=== PATIENT | female | born 1955 | race Caucasian/White ===

== ENCOUNTER 2016-12-08 10:21 | Inpatient (IN) | payer MEDICARE ==
--- NOTE | ~2016-12-08 | CO ---
Unit #: [id number] #: [id number] Patient: LINH ANDINO [id number] [facility]. [place], [place] [address] [id number] MR#: [id number] NAME: LINH ANDINO. ROOM: 231 Age: 61 Sex: F Admission Date: 12/09/2016 : 1955 Attending Physician: Manpreet Moore M.D. Primary Care Physician: Melchor Serna Aprn Consultation Date: 12/08/2016 CONSULTATION REPORT REASON FOR EVAL Splenic infarcts, please evaluate. HISTORY OF PRESENT ILLNESS This 61-year-old lady who came in with left upper quadrant pain was scanned and it shows possible wqzoy-on-nyfyuiy infarcts in the spleen with no actual evidence of clotting currently, has a past history of pulmonary embolism that was diagnosed in this hospital with a CT angio in 2013. She subsequently took six months of Xarelto and was told that everything is clear so she stopped taking the Xarelto and has had no other clots ever since. She has a history of hepatitis C, status post Harvoni therapy and we do not known the status of the counts, otherwise past history of hypertension, hypothyroidism, no cancers diagnosed in the past. CHRONIC MEDICATIONS OxyContin, Synthroid, gabapentin, Imuran and doxycycline. ALLERGIES Sulfa and Plavix which gave her hives in the past. FAMILY HISTORY Family history is negative for blood clots. She states that one parent had carotid clots and one parent may have had congestive failure and possible clots but no clearcut history of clotting. SOCIAL HISTORY She smokes heavy, unfiltered cigarettes according to the , over a pack a day for decades and no alcohol usage. REVIEW OF SYSTEMS Mainly remarkable for left upper quadrant discomfort periodically; no active pain but she is already seeing pain doctor and already on narcotics. Otherwise 10 systems were within normal limits. PHYSICAL EXAMINATION GENERAL APPEARANCE: On exam she has a dusky appearance. No palpable nodes. LUNGS: Clear. CARDIOVASCULAR: Distant S1 and S2. ABDOMEN: Spleen is not palpable. There is tenderness left upper quadrant and liver is not palpable. Bowel sounds are present. 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 GENITOURINARY: Pelvic exam was not performed. Unit #: [id number] #: [id number] Patient: LINH ANDINO DIAGNOSTIC STUDIES LABORATORY: So at this point we checked her blood work, hemoglobin 15.4, hematocrit 47, white count 17.6, platelets 433,000 and sodium 138, potassium 4.2, chloride 104, CO2 24, glucose 104, BUN 7, creatinine 0.7. IMAGING: Her CT angiogram is done of the chest and abdomen, results pending. 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 From our part will proceed with a D-dimer, lipid profile, factor V Leiden, prothrombin gene mutation, lupus anticoagulant, cardiolipin and phospholipid antibodies and schedule an outpatient followup in case we find that there is active clotting then we will pursue it but if there is no active clotting I would consider Xarelto 15 mg p.o. b.i.d. for 21 days followed by 20 mg with supper and outpatient followup to check hypercoagulable workup and depending on the findings proceed further. Dictated by... Angeline Rodriguez/amando TD: 12/09/2016 15:48 JOB #: [id number] CONSULTATION REPORT Page 1 of 1 X Ranjan Sánchez MD X CONSULTATION REPORT
--- NOTE | ~2016-12-08 | CT2 ---
[facility] A Service of [facility] & [facility] RADIOLOGY TEXT RESULTS PATIENT: LINH ANDINO [facility] [id number] : [birth year] UNIT #: [id number] AGE: [address]: Manpreet Moore MD SEX: F ORDER DR: [id number] [facility] [address] [facility]. [place], [place] [address] [id number] MR#: [id number] Acc #: [id number] NAME: LINH ANDINO : 1955 SEX: F STUDY DATE/TIME: 12/08/2016 09:21 UNIT: [facility] ROOM: STUDY DESCRIPTION: CT Abd and Pelv W Cont Attending Physician: Mirza Menendez M.D. Ordering Physician: Mirza Menendez M.D. Primary Care Physician: Melchor Serna Aprn MEDICAL IMAGING REPORT This report is preliminary unless electronic signature is present EXAM CT abdomen and pelvis with contrast 12/08/2016 0921 hours HISTORY 61-year-old woman with right-sided abdominal pain for 4 days with nausea. COMPARISON 06/01/[address] images were obtained from the lung bases through the pubic symphysis. Sagittal and coronal reconstructions were performed. Contrast was Isovue-370 100 mL IV. Total exam DLP 30 mGy-cm. This CT exam was performed with one or more of the following radiation dose reduction techniques: automatic exposure control, adjustment of mA and/or kV according to patient size, and iterative reconstruction. FINDINGS Images through the lung bases are clear. There are no effusions. Images through the abdomen demonstrate normal size and density to the liver. The gallbladder may contain a few tiny stones in the neck, previously demonstrate on prior exam. Common bile duct is normal in caliber. Question is raised of subtle noncalcified filling defect in the distal common bile duct near the pancreatic head. This could represent volume averaging artifact. Correlate with lab values and consider ERCP or MRCP as warranted. Maximal dimension of common bile duct is 13 mm, previously 13 mm. The spleen is stable in size however there are multiple peripheral low density defects having a wedge-like or geographic distribution throughout the spleen concerning for infarcts or infiltrative process. There is STS. [facility] A Service of [facility] & [facility] RADIOLOGY TEXT RESULTS PATIENT: LINH ANDINO LOCATION: [facility] [id number] : [birth year] UNIT #: [id number] AGE: [address]: Manpreet Moore MD SEX: F ORDER DR: trace linear stranding inferior to the spleen. The adrenal glands and kidneys are normal. The abdominal aorta is normal in caliber with atherosclerotic calcifications present. The celiac axis including the splenic artery, superior mesenteric artery, renal arteries are opacified with contrast. The stomach and small bowel are normal. The appendix is normal. There are scattered colonic diverticula without evidence of wall thickening or inflammation. CT pelvis demonstrates a normal appearance to the uterus and ovaries. There is no pelvic free fluid. The bladder is normal. IMPRESSION 1. There appear be very small gallstones in the gallbladder similar to 06/01/2016. The common bile duct is prominent at 13 mm but unchanged. Question of a vague filling defect is raised in the common bile duct near the head of the pancreas. This does not appear calcified. Correlate with lab values. Consider follow up ERCP if warranted. 2. The spleen is abnormal with multiple peripheral wedge-like defects most likely representing infarcts. Infiltrative tumor or lymphoma is included in the differential however the splenic size is not increased from 06/01/2016. Embolic phenomena cannot be excluded. Dictated by... Fannie Angulo M.D. THIS IS AN ELECTRONICALLY VERIFIED REPORT Fannie Angulo M.D. at 12/08/2016 1:00 PM Mariana TD: 12/08/2016 10:07 JOB #: [id number] MEDICAL IMAGING REPORT Page 1 of 1 COPY
--- NOTE | ~2016-12-08 | CT13 ---
[facility] A Service of [facility] & [facility] RADIOLOGY TEXT RESULTS PATIENT: LINH ANDINO LOCATION: [place] [address] : [birth year] UNIT #: [id number] AGE: [address]: Manpreet Moore MD SEX: F ORDER DR: [id number] [facility] [address] [place], [place] [address] [id number] I MR#: [id number] Acc #: [id number] NAME: LINH ANDINO : 1955 SEX: F STUDY DATE/TIME: 12/08/2016 12:54 UNIT: [facility] ROOM: 72774 STUDY DESCRIPTION: CT Angio Abdomen Attending Physician: Manpreet Moore M.D. Ordering Physician: Manpreet Moore M.D. Primary Care Physician: Melchor Serna Aprn MEDICAL IMAGING REPORT This report is preliminary unless electronic signature is present EXAM CT angiogram of the abdomen. INDICATION This patient has a history of abdominal pain for 4 days.. She underwent a CT of the abdomen and pelvis which showed multiple splenic infarctions. Exam is requested for further evaluation of arterial vasculature. FINDINGS Please see CT angio chest for results. Dictated by... Marianela Sims M.D. THIS IS AN ELECTRONICALLY VERIFIED REPORT Marianela Sims M.D. at 12/08/2016 6:32 PM AFF/tmw TD: 12/08/2016 15:50 JOB #: [id number] MEDICAL IMAGING REPORT Page 1 of 1 COPY
--- NOTE | ~2016-12-08 | DS ---
Unit #: [id number] #: [id number] Patient: LINH ANDINO [id number] [address] [place], [place] [address] [id number] I MR#: [id number] NAME: LINH ANDINO. ROOM: 231 Age: 61 Sex: F Admission Date: 12/09/2016 : 1955 Discharge Date: 12/09/2016 Attending Physician: Manpreet Moore M.D. Primary Care Physician: Melchor Serna, Stu DISCHARGE SUMMARY FINAL DIAGNOSES 1. Splenic infarct. 2. Coagulopathy. SECONDARY DIAGNOSES 1. Chronic back pain. 2. Hypothyroidism. 3. History of hepatitis C. 4. Hypertension. CONSULTS Dr. Ranjan Sánchez, hematology. HOSPITAL COURSE Patient is a pleasant, 61-year-old female with a history of hypertension, history of hepatitis C in the past, with history of chronic back pain, who presented with left flank pain. She was diagnosed as having a splenic infarct and she has had a history of PE in the past and taking of Xarelto. She was fully anticoagulated with Lovenox 1 mg/kg subcu b.i.d. and she was seen by Hematology who reviewed her presentation and the conclusion was to put her on Xarelto therapy pack with followup instructions. She is scheduled to follow up with Dr. Sánchez in one week. Coagulopathy workup has been done and results are pending. CT angio of chest and abdomen has been done and shows no blood clots associated with the etiology. We plan to discharge patient on Xarelto. She is scheduled to follow up with Hematology in two weeks. DISCHARGE MEDICATIONS Medications on discharge: 1. Xarelto treatment pack. 2. Neurontin 200 mg p.o. t.i.d. 3. Gabapentin 800 mg p.o. t.i.d. 4. Elmiron 400 mg p.o. daily. 5. OxyContin 7.5 mg p.o. t.i.d. p.r.n. for pain. 6. Doxycycline was discontinued. 7. Synthroid 175 mcg p.o. daily. FOLLOWUP She is scheduled to follow up with: 1. PCP in about a week. 2. Dr. Sánchez in about two weeks. Unit #: [id number] #: [id number] Patient: LINH ANDINO Time spent coordinating discharge is about 22 minutes. Dictated by... Angeline Sewell TD: 12/09/2016 21:57 JOB #: [id number] DISCHARGE SUMMARY Page 1 of 1 X Manpreet Moore MD X DISCHARGE SUMMARY
--- NOTE | ~2016-12-08 | CT15 ---
[facility] A Service of [facility] & [facility] RADIOLOGY TEXT RESULTS PATIENT: LINH ANDINO LOCATION: [facility] 231-01 : [birth year] UNIT #: [id number] AGE: [address]: Manpreet Moore MD SEX: F ORDER DR: [id number] [facility] [address]. [place], [place] [address] [id number] I MR#: [id number] Acc #: [id number] NAME: LINH ANDINO. : 1955 SEX: F STUDY DATE/TIME: 12/08/2016 12:54 UNIT: [facility] ROOM: 05114 STUDY DESCRIPTION: CT Angio Chest Attending Physician: Manpreet Moore M.D. Ordering Physician: Manpreet Moore M.D. Primary Care Physician: Melchor Serna Aprn MEDICAL IMAGING REPORT This report is preliminary unless electronic signature is present EXAM CT angiogram of the chest and abdomen. INDICATION This patient has a history of abdominal pain for 4 days.. She underwent a CT of the abdomen and pelvis which showed multiple splenic infarctions. Exam is requested for further evaluation of arterial vasculature. TECHNIQUE Axial CT images were obtained from the thoracic inlet through the abdomen following the administration of intravenous contrast material. Following this, 3-D reformatted images were obtained. This CT exam was performed with one or more of the following radiation dose reduction techniques: automatic exposure control, adjustment of mA and/or kV according to patient size, and iterative reconstruction. FINDINGS Thoracic aorta is of normal caliber with no evidence of dissection. The arch vessels appear widely patent. Please note the timing of the bolus results in poor evaluation of the abdominal aorta which was actually better assessed on the patient's earlier CT. Celiac axis appears to be widely patent as does the superior mesenteric artery. The patient's splenic artery is also widely patent. No obvious embolic source is seen. No definite flow-limiting stenosis of the renal arteries is identified and the inferior mesenteric artery is also patent. This patient does have some atherosclerotic calcification which continues into the iliac vessels. Again, this was also seen on the earlier CT. Definite flow-limiting stenosis is not seen. Right lobe of the thyroid gland is either atrophic or surgically absent. Trachea and esophagus appear within normal limits. There is no pleural or pericardial effusion. [facility]. [facility] A Service of [facility] RADIOLOGY TEXT RESULTS PATIENT: LINH ANDINO LOCATION: [facility] 231-01 : [birth year] UNIT #: [id number] AGE: [address]: Manpreet Moore MD SEX: F ORDER DR: Mediastinal lymph nodes do not appear pathologically enlarged. There are some prominent hilar nodes, for example, right hilar node measures about to 1.8 x 1.2 cm, previously 19 x 1.2 cm in May 2016. Background emphysematous changes are identified.. Bibasilar scarring is identified. I do not see any infiltrates. No discrete noncalcified pulmonary nodules are seen. Again, this was discussed on the prior examination. Multiple peripheral wedge shaped areas of decreased attenuation are seen throughout the spleen favored to represent splenic infarcts. Stomach and proximal small bowel are within normal limits as are the adrenal glands, pancreas, gallbladder. Tiny low-attenuation lesion is seen within the right hepatic lobe, probably stable when compared to prior examinations and of doubtful clinical significance. Kidneys also appear unremarkable. There is no evidence of mechanical bowel obstruction. There is a small fat-containing umbilical hernia. Review of bony windows does not demonstrate any aggressive osseous abnormalities. There is some subcutaneous gas seen within the right lower anterior abdominal wall, likely reflecting injection site. IMPRESSION 1. The aorta is of normal caliber with no evidence of dissection. No significant ulcerative plaque is seen to suggest an embolic source. Patient's splenic artery does appear to be patent. The patient's celiac axis, superior mesenteric artery, renal arteries, and inferior mesenteric artery also all appear to be patent. 2. Mildly prominent hilar lymph nodes. These were also present on a prior exam from February 2016 and probably not significantly changed. 3. Peripheral areas of wedge-shaped decreased attenuation seen throughout the spleen are favored to represent splenic infarcts. Again, obvious source is not identified. 4. Background emphysematous changes. Dictated by... Marianela Sims M.D. THIS IS AN ELECTRONICALLY VERIFIED REPORT Marianela Sims M.D. at 12/08/2016 6:32 PM MARYBETH/petr TD: 12/08/2016 15:49 JOB #: [id number] MEDICAL IMAGING REPORT Page 1 of 1 COPY
--- NOTE | ~2016-12-08 | HP ---
Unit #: [id number] #: [id number] Patient: LINH ANDINO [id number] [address] [address] [id number] I MR#: [id number] NAME: LINH ANDINO. ROOM: 17996 Age: 61 Sex: F Admission Date: 12/08/2016 : 1955 Attending Physician: Manpreet Moore M.D. Primary Care Physician: Melchor Serna Aprn HISTORY AND PHYSICAL CHIEF COMPLAINT Left flank pain. HISTORY OF PRESENT ILLNESS Patient is a 61-year-old, female with a history of pulmonary embolism about 2 years ago with hepatitis C treated with HARVONI, hypothyroidism, and hypertension. Presents with a five-day history of left-sided flank pain. She does go to pain management and her flank pain did not improve, hence her presentation in the emergency room here. In the emergency room, a CAT scan of her abdomen and pelvis revealed a splenic infarct. She was also diagnosed as having a urinary tract infection as her urinalysis was positive for trace leukocyte esterase and urobilinogen. She denies any nausea or vomiting at this time. Denies any chest pain. She describes her abdominal pain as somewhat sharp, not colicky, and non-radiating at this time. Improved with Toradol. Patient denies any nausea or vomiting. No hematochezia, hematuria, or hematemesis. PAST MEDICAL HISTORY Hepatitis C treated with HARVONI in the past, history of pulmonary embolism two years ago treated with Xarelto for six months, hypothyroidism, sciatica, chronic back pain, and hypertension. PAST SURGICAL HISTORY She has had a thyroidectomy in the past; carpal tunnel surgery, right hand; carpal tunnel surgery, left; and tonsillectomy in the past, as well. MEDICATIONS Home medications, not reconciled at this time, but include: 1. Synthroid. 2. Gabapentin. 3. OxyContin. 4. Imuran. 5. Doxycycline. ALLERGIES Sulfa and Plavix gave her hives in the past. SOCIAL HISTORY Smokes a pack of cigarettes a day. Drinks alcohol. Denies any recreational drugs or illicit drug use. FAMILY HISTORY Noncontributory to current complaint. Unit #: [id number] #: [id number] Patient: LIHN ANDINO PHYSICAL EXAMINATION GENERAL APPEARANCE: She was comfortable and not in distress. VITAL SIGNS: Blood pressure 155/81, pulse 97, respiratory rate 18, and temperature 98.6. HEENT: Pupils are equal, round, and reactive to light and accommodation. NECK: Supple without thyromegaly. CARDIOVASCULAR: First and second hearts only. ABDOMEN: Full. Moved with respirations. Tenderness in the left flank and left upper quadrant. No rebound. Positive normal bowel sounds. RECTAL: Exam was deferred. CENTRAL NERVOUS SYSTEM: Alert, and oriented x3. Moves all limbs spontaneously. Cranial nerves, II-XII, grossly intact. EXTREMITIES: Mild bilateral lower extremity edema. SKIN: Warm and dry. No rashes at this time. DIAGNOSTIC STUDIES IMAGING: She had a chest x-ray, which was negative. LABORATORY: She also had chemistries, which were essentially normal with a glucose of 100, BUN and creatinine 7 and 0.7, and potassium of 4.2. She had a CBC with WBC of 17.6, hemoglobin and hematocrit 15.4 and 47 with a platelet count of 433, and neutrophil count of 75.9. ASSESSMENT AND PLAN 1. Abdominal pain. Splenic infarct on CT. Will get a CT angiogram of her chest and her abdomen. Will consult oncology, Dr. Maynard. 2. Possible (1) . Will put her on Lovenox 1 mg/kg subcu. b.i.d. 3. Possible urinary tract infection. Cultures have been obtained. 4. Chronic pain. 5. High blood pressure. Continue medications (2) . 6. Hypothyroidism. 7. For GI prophylaxis, put her on Protonix 40 mg p.o. every day. 8. Code status: Full code. Dictated by Angeline Sewell/mark TD: 12/08/2016 11:49 JOB #: [id number] HISTORY AND PHYSICAL Page 1 of 1 X Manpreet Moore MD HISTORY AND PHYSICAL
[2016-12-08 08:27] LABS: BASOPHIL# 0.1 X10e3 (0-0.3); BASOPHIL% 0.6 % (0-2.5); EOSINOPHIL# 0.4 X10e3 (0-0.7); EOSINOPHIL% 2.2 % (0.0-7.0); HEMOGLOBIN 15.4 gm/dL (12.0-16.0); LYMPHOCYTE# 2.6 X10e3 (1.0-3.5); LYMPHOCYTE% 14.8 % (17.0-45.0); MEAN CELL VOLUME 89.2 FL (83-96); MEAN CORPUSCULAR HEMOGLOBIN 29.2 PG (28-34); MEAN CORPUSCULAR HGB CONC 32.7 g/dL (30-36); MONOCYTE# 1.1 X10e3 (0-1.0); MONOCYTE% 6.5 % (3.0-12.0); NEUTROPHIL# 13.3 X10e3 (1.5-7.1); NEUTROPHIL% 75.9 % (40-75); PLATELET COUNT 433 X10e3 (140-420); RED BLOOD COUNT 5.27 X10e (3.90-5.30); RED CELL DISTRIBUTION WIDTH 14.5 % (11.0-15.5); WHITE BLOOD COUNT 17.6 X10e3 (4.0-10.5)
[2016-12-08 08:31] LABS: DIFF IND YES
[2016-12-08 08:50] LABS: ALBUMIN SERUM 3.8 g/dL (3.5-5.0); ALKALINE PHOSPHATASE 87 U/L (32-92); ALT (SGPT) 13 U/L (10-40); AST (SGOT) 16 U/L (10-42); BILIRUBIN,TOTAL 0.6 mg/dL (0.2-2.0); BLOOD UREA NITROGEN 7 mg/dL (9-23); CALCIUM SERUM 9.5 mg/dL (8.4-10.2); CARBON DIOXIDE 24 mmol/L (22-31); CHLORIDE 104 mmol/L (100-111); CREATININE SERUM 0.7 mg/dL (0.6-1.4); GLOM FILT RATE Estimated 94.8 mL/min (>60); GLUCOSE FASTING 100 mg/dL (70-110); LIPASE 14 U/L (22-51); POTASSIUM 4.2 mmol/L (3.5-5.1); PROTEIN TOTAL SERUM 7.4 g/dL (6.0-8.3); SODIUM 138 mmol/L (135-145)
[2016-12-08 08:51] LABS: BILIRUBIN, DIRECT <0.1 mg/dL (0.0-0.2); BILIRUBIN,INDIRECT 0.5 mg/dL (0.0-0.9)
[2016-12-08 09:13] LABS: URINE SOURCE CLEAN CATCH
[2016-12-08 09:27] LABS: URINE APPEARANCE CLOUDY; URINE BILIRUBIN NEG (NEG); URINE BLOOD TRACE (NEG); URINE COLOR YELLOW; URINE GLUCOSE NEG (NEG); URINE KETONE NEG (NEG); URINE LEUKOCYTE ESTERASE 3+ (NEG); URINE NITRATE NEG (NEG); URINE PH 5.5 (5-8); URINE PROTEIN NEG (NEG); URINE SPECIFIC GRAVITY 1.019 (1.003-1.035); URINE UROBILINOGEN 0.2 MG/DL (NEG)
[2016-12-08 09:29] LABS: CULTURE INDICATED? YES; URINE BACTERIA AUWI 2+ (NEGATIVE); URINE SQUAMOUS EPITHELIAL CELL MOD /[HPF]
[2016-12-08 09:45] LABS: ANISOCYTOSIS SL; PLATELET ESTIMATE INCREASED (NORMAL); RBC NORMAL YES
[2016-12-08 09:49] LABS: URINE CRYSTALS CALCIUM OXALATE /[HPF]; UWBCS1 AUWI 25-50 (0-5)
[~2016-12-08 10:21] MED LIST: ALBUTEROL17 GM INH; AMLODIPINE BESY10 MG PO; AMLODIPINE BESYL5 MG PO; AUGMENTIN875 M1 PO; DARVOCET-N 1001 TAB PO; DOXYCYCLINE HY100 M3 PO; ELMIRON100 MG PO; FLEXERIL PO; GABAPENTIN800 MG PO; IBUPROFEN PO; IBUPROFEN800 MG PO; INDOMETHACIN50 MG PO; LORTAB 7.5-5001 TAB PO; OXYCONTIN PO; PREDNISONE PO; PROTONIX PO; ROBAXIN 750750 M1 PO; ROBAXIN500 MG; SYNTHROID PO; TRAMADOL; TRAMADOL HCL50 M1 PO; ULTRAM PO; VOLTAREN75 MG PO; XARELTO15 MG PO; XARELTO20 MG
[2016-12-08] MEDS ORDERED: NEURONTIN PO (14:13)
[2016-12-08] MEDS ORDERED: GABAPENTIN800 MG PO (14:14)
[2016-12-08 19:00] LABS: CHOLESTEROL 245 mg/dL (0-200); HDL CHOLESTEROL 58 mg/dL (35-95); LDL/HDL RATIO 3 RATIO (0-4); TRIGLYCERIDES 86 mg/dL (10-160)
[2016-12-08 19:01] LABS: LDL CHOLESTEROL 170 mg/dL (-130)
[2016-12-09 06:19] LABS: HEMATOCRIT 42.3 % (35.0-45.0); HEMOGLOBIN 13.7 gm/dL (12.0-16.0); MEAN CELL VOLUME 89.7 FL (83-96); MEAN CORPUSCULAR HEMOGLOBIN 28.9 PG (28-34); MEAN CORPUSCULAR HGB CONC 32.3 g/dL (30-36); MEAN PLATELET VOLUME 8.4 FL (6.5-11.5); RED BLOOD COUNT 4.72 X10e (3.90-5.30); RED CELL DISTRIBUTION WIDTH 14.8 % (11.0-15.5); WHITE BLOOD COUNT 13.7 X10e3 (4.0-10.5)
[2016-12-09 06:52] LABS: BUN/CREATININE RATIO 11.66; CALCIUM SERUM 8.9 mg/dL (8.4-10.2); CREATININE SERUM 0.6 mg/dL (0.6-1.4); GLOM FILT RATE Estimated 99.8 mL/min (>60); POTASSIUM 4.8 mmol/L (3.5-5.1)
[2016-12-13 15:29] LABS: CARDIOLIPIN IGG (LUPUS) <14 GPL (<=14); CARDIOLIPIN IGM (LUPUS) <12 MPL (<=12); DRVVT CONFIRM Negative (Negative); DRVVT MIX INTERP (LUPUS) Not Indicated (()); HEXAGONAL PHASE CONF (LUPUS) Positive (Negative); IMM PTT LA MIX NOT CORRECTED (()); INR LUPUS 1.2 (()); PROTROMBIN TIME LUPUS 12.4 sec (9.0-11.5); PT (LA MIX STUDY) 12.4 sec (<=11.5); PTT MIX INTERP Has been added (()); PTT-LA 52 sec (<=40); PTT-LA SCREEN (LUPUS) 52 sec (<=40); THROMBIN TIME LUPUS 20 sec (13-19); dRVVT SCREEN (LUPUS) 50 sec (<=45)
== END 2016-12-09 16:35 | disposition home or self-care (01) | DRG 815 ==
LOC: CED 10:21 → CEDOF 10:38 → C2A 12-09 09:12
PROVIDERS: Family Medicine; Internal Medicine Medical Oncology
DX: D73.5 Infarction of spleen (principal); D68.9 Coagulation defect, unspecified; I10 Essential (primary) hypertension; G89.29 Other chronic pain; M54.9 Dorsalgia, unspecified; F17.210 Nicotine dependence, cigarettes, uncomplicated; E03.9 Hypothyroidism, unspecified; Z86.711 Personal history of pulmonary embolism; Z86.19 Personal history of other infectious and parasitic diseases; Z88.2 Allergy status to sulfonamides; Z88.8 Allergy status to other drugs, medicaments and biological substances
CPT/HCPCS: 36415; 71010; 71275; 74175; 74177; 80048; 80061; 80076; 80307; 81003; 81240; 81241; 83690; 83880; 85025; 85027; 85379; 85597; 85598; 85610; 85613; 85670; 85730; 86147; 87086; 96361; 96374; 96375; 99284; C9113; J0696; J1170; J1650; J1885; J2405; Q9967

== ENCOUNTER → 2017-01-03 | Outpatient (CLI) | payer MEDICARE ==
[~2017-01-03] MED LIST changes: +NEURONTIN PO
--- NOTE | ~2017-01-03 | CT5 ---
[facility] A Service [facility] RADIOLOGY TEXT RESULTS PATIENT: LINH ANDINO [id number] [birth year] UNIT #: [id number] AGE: [address]: Ranjan Sánchez MD SEX: F ORDER DR: [id number] [place] [id number] [place], [place] [address] [id number] O MR#: [id number] Acc #: [id number] NAME: LINH ANDINO : 1955 SEX: F STUDY DATE/TIME: 01/03/2017 10:57 UNIT: [facility] ROOM: STUDY DESCRIPTION: CT Abdomen W Cont Attending Physician: Ranjan Sánchez M.D. Referring Physician: Ranjan Sánchez M.D. Ordering Physician: Ranjan Sánchez M.D. Primary Care Physician: Melchor Serna Aprn MEDICAL IMAGING REPORT This report is preliminary unless electronic signature is present EXAM CT abdomen with contrast INDICATION Left upper quadrant abdominal pain for the past 3-4 days. PROCEDURE Contrast-enhanced CT of the abdomen. 100 mL of Isovue-370. COMPARISON 12/08/[address] exam was performed with one or more of the following radiation dose reduction techniques: automatic exposure control, adjustment of mA and/or kV according to patient size, and iterative reconstruction. FINDINGS Included lung bases are clear. The liver, kidneys, adrenal glands, pancreas, gallbladder unremarkable. Redemonstration of wedge-shaped areas of hypoenhancement throughout the spleen. These areas of very similar to the previous study. They may be slightly smaller. The included bowel loops are nondilated. Appendix is normal. No aggressive appearing bone lesion. IMPRESSION 1. Wedge-shaped areas of hypoenhancement in the spleen may be slightly smaller than on the previous study. No new areas are seen. Again these are favored to represent evolving splenic infarcts. 2. Otherwise negative CT of the abdomen. Dictated by... [facility] A Service [facility] RADIOLOGY TEXT RESULTS PATIENT: LINH ANDINO [facility] [id number] : [birth year] UNIT #: [id number] AGE: [address]: Ranjan Sánchez MD SEX: F ORDER DR: José Chaparro M.D. THIS IS AN ELECTRONICALLY VERIFIED REPORT José Chaparro M.D. at 01/03/2017 3:56 PM SARAHI/antonina TD: 01/03/2017 13:02 JOB #: [id number] MEDICAL IMAGING REPORT Page 1 of 1 COPY
== END | disposition home or self-care (01) ==
LOC: CCAT 09:26
DX: D73.5 Infarction of spleen (principal)
CPT/HCPCS: 74160; Q9967